=== PATIENT | female | born 1970 | race Caucasian/White ===

== ENCOUNTER 2024-02-26 13:02 | Outpatient (AMB) | payer OTHER, SELFPAY ==
--- NOTE | 2024-02-26 13:10 | A.OFFPC_ITS ---
Vital Signs 02/26/24 13:17 Height 5 ft 4 in Weight 190 lb 2 oz BMI 32.6 BP 116/78 Blood Pressure Location Lt brachial Position Sitting Respiration 12 Pulse 65 Pulse Source Pulse Oximeter Temp 98.2 F Temp Source Oral Pulse Oximetry (%) 95 Oxygen Delivery Method Room Air Intake Visit Reasons: [employer]- Thyroid follow up Intake Note: New patient visit Allergies Penicillins Allergy (Severe, Verified 02/26/24 13:11) Unknown Medication List - Last Reconciled 02/26/24 by Regla Gao PA-C levothyroxine 50 mcg PO DAILY sertraline 50 mg PO DAILY Tobacco use date assessed: 02/26/24 Dental Screening Dental Screen Date: 02/26/24 Did you have a dental visit in the last 12 months?: Yes Did you have a dental problem in the last 6 months where you did not have access to dental care?: No Was dental information given to patient?: Patient has dentist HPI [employer]- Thyroid follow up HPI Details Patient is a 53-year-old female who presents today to establish care/follow up. She was last seen by myself at [facility] on 10/07/23. Endo: She was started on levothyroxine 50 mcg well her TSH was 28. She had had antibody testing which I do not have the report of. She did have an ultrasound which was consistent with thyroiditis. Psych: Feels well-controlled on Zoloft 50 mg. No SI/HI. General: We were working on weight loss with phentermine but no real improvement. She stopped this medication but is wondering if there is something else she could try. She exercises and eats healthy everyday. She states that she wonders if it is her thyroid that is still just making her feel tired and unable to lose weight effectively. Derm: follows annually with [facility]. 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 1. Little interest or pleasure in doing things: not at all 2. Feeling down, depressed, or hopeless: not at all 3. Trouble falling or staying asleep, or sleeping too much: several days 4. Feeling tired or having little energy: several days 5. Poor appetite or overeating: not at all 6. Feeling bad about yourself - or that you are a failure or have let yourself or your family down: not at all 7. Trouble concentrating on things, such as reading the newspaper or watching television: not at all 8. Moving or speaking so slowly that other people could have noticed. Or the opposite - being so fidgety or restless that you have been moving around a lot more than usual: not at all 9. Thoughts that you would be better off or of hurting yourself in some way: not at all Total score: 2 Depression Screening Interpretation: Negative Depression Screening Done: Yes 49855 - PHQ-9 Billing: Yes Source: Developed by Drs. Bong Molina, Lavinia Crabtree, Jan Dave and colleagues, with an educational yunier from [employer]. Thrive Questionnaire I am a: Patient What is your living situation today?: I have a steady place to live Within the past 12 months, did the food you bought not last and you didn't have the money to get more?: Never true Within the past 12 months, did you worry whether your food would run out before you got money to buy more?: Never true Do you have trouble paying for medicines?: No Do you have trouble getting transportation to medical appointments?: No Do you have trouble paying your heating and electricity bill?: No Do you have trouble taking care of your child, family member or friend?: No Do you have trouble with day-to-day activities such as bathing, preparing meals, shopping, managing finances, etc.?: No Are you currently unemployed and looking for a job?: No Are you interested in more education?: No Please select the resources that you would like help with: None Currently or been in a relationship where the following occur: no concerns reported THRIVE Score: 0 AUDIT C Alcohol Use Questionnaire (AUDIT-C) 1. How often do you have a drink containing alcohol?: Never 3. How often do you have six or more drinks on one occasion?: Never Total Score: 0 MELLO-7 AMB Questionnaire MELLO-7 Feeling nervous, anxious, or on edge: 0 = Not at all Not being able to stop or control worryin = Not at all Worrying too much about different things: 0 = Not at all Trouble relaxin = Not at all Being so restless that it is hard to sit still: 0 = Not at all Becoming easily annoyed or irritable: 0 = Not at all Feeling afraid as if something awful might happen: 0 = Not at all Total MELLO-7 score (0-4 normal; 5-9 mild; 10-14 moderate; 15-21 severe): 0 Source: Developed by Drs. Bong Molina, Lavinia Crabtree, Jan Dave and colleagues, with an educational yunier from [employer]. MELLO-7 Assessment Billing MELLO-7 Assessment Tool: MELLO-7 Assessment 24613 Physical exam (Primary Care) Tobacco/Smoking Status: Tobacco use Status Tobacco use date assessed 02/26/24 02/26/24 13:15 Patient Tobacco Use Status Never used Tobacco 02/26/24 13:15 e-Cigarette/Vaping Use Never Used 02/26/24 13:15 Depression Screening Interpretation: Negative Currently or been in a relationship where the following occur: no concerns reported Const Orientation/consciousness: patient oriented x3 HENMT Ears: hearing grossly normal bilaterally Neck Thyroid: Thyroid normal Lymphatic: no lymphadenopathy noted Resp Auscultation: clear to auscultation bilaterally Cardio Rate: regular rate Rhythm: regular rhythm Heart sounds: S1 normal heart sound present and S2 normal heart sound present GI Inspection: Yes normal to inspection Palpation (GI): Soft to palpation and Other GI palpation findings present (nontender, no cva tenderness) Auscultation: normoactive bowel sounds Rectal Exam - Female: deferred Skin General skin exam: no rashes or lesions noted Neuro General: patient oriented x3, gait normal and no focal motor deficits Assessment and Plan Assessment & Plan (1) Hypothyroidism: Code(s): E03.9 - Hypothyroidism, unspecified Qualifiers: Hypothyroidism type: unspecified Qualified Code(s): E03.9 - Hypothyroi dism, unspecified Plan: We will recheck TSH today. Adjust medication accordingly. (2) Obesity, Class I, BMI 30-34.9: Code(s): E66.9 - Obesity, unspecified Plan: She will contact her insurance company to see if they will cover Wegovy or zepbound. (3) Fatigue: Code(s): R53.83 - Other fatigue Qualifiers: Fatigue type: unspecified Qualified Code(s): R53.83 - Other fatigue Plan: Labs ordered today. We will follow up pending test results. Orders: Orders Comprehensive Honor. Panel Fast Today E03.9 - Hypothyroidism, unspecified, E66.9 - Obesity, unspecified, R53.83 - Other fatigue Complete Blood Count Auto Diff Today E03.9 - Hypothyroidism, unspecified, E66.9 - Obesity, unspecified, R53.83 - Other fatigue Vitamin B12 and Folate Today E03.9 - Hypothyroidism, unspecified, E66.9 - Obesity, unspecified, R53.83 - Other fatigue Thyroid Peroxidase Antibodies Today E03.9 - Hypothyroidism, unspecified, E66.9 - Obesity, unspecified, R53.83 - Other fatigue XR DEXA axial skeleton Today Z78.0 - Asymptomatic menopausal state Lipid Panel Today E03.9 - Hypothyroidism, unspecified, E66.9 - Obesity, unspecified, R53.83 - Other fatigue TSH reflex Free T4 Today E03.9 - Hypothyroidism, unspecified, E66.9 - Obesity, unspecified, R53.83 - Other fatigue Thyroglobulin Antibodies Today E03.9 - Hypothyroidism, unspecified, E66.9 - Obesity, unspecified, R53.83 - Other fatigue Coding Level of Care Code Est Pt Level 4 (33156) Complex EM visit Add On G2211 Diagnoses Hypothyroidism, unspecified type E03.9 Hypothyroidism type: unspecified Obesity, Class I, BMI 30-34.9 E66.9 Fatigue, unspecified type R53.83 Fatigue type: unspecified Additional Codes MELLO-7 Assessment Billing - MELLO-7 Assessment Tool: MELLO-7 Assessment 78946 ([id number])
[2024-02-26 13:17] VITALS: BP 116/78; PULSE 65; RESP 12; TEMP 36.8; O2SAT 95; BMI 32.6
== END 2024-02-26 13:54 | disposition home or self-care (01) ==
PROVIDERS: PCP Physician Assistant; Visit Provider Physician Assistant
DX: E03.9 Hypothyroidism, unspecified (principal); E66.9 Obesity, unspecified; R53.83 Other fatigue; Z68.32 Body mass index [BMI] 32.0-32.9, adult
CPT/HCPCS: 99214; G2211

== ENCOUNTER 2024-02-27 07:42 | Outpatient (REF) | payer OTHER, SELFPAY ==
[2024-02-27 11:40] LABS: Basophils Absolute Auto 0.1 X10*3/uL (0.0-0.2); Basophils Percent Auto 0.9 % (0-2); Eosinophils Absolute Auto 0.2 X10*3/uL (0.0-0.4); Eosinophils Percent Auto 2.6 % (0-4); Hemoglobin 13.4 g/dl (12.0-16.0); Imm Gran Abs Auto 0.01 X10*3/uL (0.00-0.03); Imm Gran Pct Auto 0.2 % (0.0-0.4); Lymphocytes Absolute Auto 1.4 X10*3/uL (1.2-4.9); Lymphocytes Percent Auto 24.4 % (20-40); MANUAL DIFF FLAG NO; Mean Corpuscular HGB Conc 33.5 g/dl (31.0-35.0); Mean Corpuscular Hemoglobin 30.9 pg (27.0-33.0); Mean Corpuscular Volume 92.2 fL (80.0-98.0); Mean Platelet Volume 11.6 fL (9.4-12.3); Monocytes Absolute Auto 0.4 X10*3/uL (0.1-1.2); Monocytes Percent Auto 6.7 % (2-11); Neutrophils Absolute Auto 3.8 x10*3/uL (2.0-8.3); Neutrophils Percent Auto 65.2 % (45-73); Platelet Count 238 X10*3/uL (160-400); Red Blood Count 4.34 X10*6/uL (4.20-5.50); Red Cell Distribution Width 12.8 % (11.0-16.0); White Blood Count 5.8 X10*3/uL (4.8-10.8)
[2024-02-27 12:34] LABS: Vitamin B12 389 pg/mL (200-900)
[2024-02-27 12:41] LABS: Alanine Aminotransferase 39 U/L (0-31); Albumin Level 4.3 g/dL (3.5-5.0); Alkaline Phosphatase 84 U/L (39-117); Anion Gap 12 (12-20); Aspartate Amino Transferase 28 U/L (5-31); Bilirubin Total 0.5 mg/dL (0.0-1.0); Blood Urea Nitrogen 15 mg/dL (9-16); Calcium 9.4 mg/dL (8.4-10.2); Carbon Dioxide 24 mmol/L (22-29); Chloride 112 mmol/L (96-108); Cholesterol 208 mg/dL (<200); Estimated Glomerular Filt Rate > 60; Glucose Fasting 98 mg/dL (60-99); HDL Cholesterol 58 mg/dL (>40); LDL Cholesterol Calculated 123 mg/dL (<100); Potassium 4.2 mmol/L (3.3-5.1); Sodium 144 mmol/L (135-145); Total Protein 6.8 g/dL (6.5-8.0); Triglycerides 137 mg/dL (<150)
[2024-02-27 12:43] LABS: TSH reflex Free T4 2.95 uIU/mL (0.32-4.0)
[2024-02-28 11:13] LABS: Thyroglobulin Antibodies 208 IU/mL (< or = 1); Thyroid Peroxidase Antibodies 706 IU/mL (<9)
== END 2024-02-27 07:43 | disposition home or self-care (01) ==
LOC: HO.WFDLDS 07:42
PROVIDERS: Visit Provider Physician Assistant
DX: E03.9 Hypothyroidism, unspecified (principal); E66.9 Obesity, unspecified; R53.83 Other fatigue
CPT/HCPCS: 36415; 80053; 80061; 82607; 82746; 84443; 85025; 86376; 86800

== ENCOUNTER 2024-04-08 09:24 | Outpatient (REF) | payer OTHER, SELFPAY ==
--- NOTE | ~2024-04-08 | MM_ITS ---
EXAMINATION: BONE DENSITOMETRY CLINICAL INDICATION: Asymptomatic menopausal state. COMPARISON: This is the patient's baseline examination. TECHNIQUE: Using a [employer] DXA System (software version: 13.1) manufactured by [facility] [employer], dual-energy x-ray absorptiometry was performed of the lumbar spine and left hip. The images are of good technical quality. Summary results are attached. FINDINGS: LEFT FEMUR, NECK: BMD 0.961 g/cm2, Z-score 0.0, T-score -0.6, normal. LEFT FEMUR, TOTAL: BMD 0.949 g/cm2, Z-score -0.3, T-score -0.5, normal. AP SPINE L1-L4: BMD 1.306 g/cm2, Z-score 1.1, T-score 1.1, normal. IDENTIFIED RISK FACTORS: Menopause. HISTORY OF FRACTURE: None listed. MEDICATIONS: None listed. MM/XR DEXA axial skeleton IMPRESSION: 1. DIAGNOSIS: Normal bone density based on the lowest T-score value of -0.6 in the femoral neck applying World Health Organization criteria. 2. 10-YEAR FRACTURE RISK PREDICTION, FRAX: According to the guidelines, FRAX calculation should only be performed on patients in the osteopenia bone density category. Therefore, FRAX was not performed on this patient. 3. Treatment Recommendations: NOF guidelines recommend consideration for treatment in postmenopausal women and men age 50 and older presenting with the following: -A hip or vertebral (clinical or morphometric) fracture. -T-score less than or equal to -2.5 at the femoral neck or spine after appropriate evaluation to exclude secondary causes. -Low bone mass at the hip or spine and a 10-year fracture probability by FRAX of greater than or equal to 3% for hip fracture or greater than or equal to 20% for major osteoporotic fracture based on the [place] adapted WHO algorithm. 4. Other Recommendations: All treatment decisions require clinical judgment and consideration of individual patient factors, including patient preferences, comorbidities, previous drug use, risk factors not captured in the FRAX model (e.g. frailty, falls, vitamin D deficiency, increased bone turnover, interval significant decline in bone density) and possible under or overestimation of fracture risk by FRAX. FUTURE SCAN RECOMMENDATION: People with diagnosed cases of osteoporosis or at high risk for fracture should have regular bone mineral density tests. For patients eligible for Medicare, routine testing is allowed once every 2 years. The testing frequency can be increased to one year for patients who have rapidly progressing disease, those who are receiving or discontinuing medical therapy to restore bone mass, or have additional risk factors.
== END 2024-04-08 09:25 | disposition home or self-care (01) ==
LOC: HO.MAMMO 09:24
PROVIDERS: Visit Provider Physician Assistant
DX: Z13.820 Encounter for screening for osteoporosis (principal); Z78.0 Asymptomatic menopausal state
CPT/HCPCS: 77080

== ENCOUNTER 2024-10-21 08:01 | Outpatient (AMB) | payer OTHER, SELFPAY ==
--- NOTE | 2024-10-21 08:03 | A.OFFPC_ITS ---
Vital Signs 10/21/24 08:08 Height 5 ft 4 in Weight 186 lb 6 oz BMI 32.0 BP 100/60 Blood Pressure Location Rt brachial Position Sitting Respiration 14 Pulse 66 Pulse Source Pulse Oximeter Pulse Oximetry (%) 98 Oxygen Delivery Method Room Air Intake Visit Reasons: annual Intake Note: Physical Cow Rider Required: No Allergies Penicillins Allergy (Severe, Verified 10/21/24 08:07) Unknown Medication List - Last Reconciled 10/21/24 by Regla Gao PA-C cetirizine (Zyrtec) 10 mg PO DAILY PRN levothyroxine 50 mcg PO DAILY sertraline 50 mg PO DAILY Tobacco use date assessed: 10/21/24 Dental Screening Dental Screen Date: 02/26/24 HPI annual HPI Details Patient is a 54-year-old female who presents today for a physical. Endo: She is on levothyroxine 50 mcg. her TSH was 2. Psych: Feels well-controlled on Zoloft 50 mg. No SI/HI. General: Doing very well with wegovy. no SE at the 0.25 mg weekly Derm: follows annually with [facility] however, recently has had to reschedule and her appointment is 2 years out. Colonoscopy: UTD, 2023 Pap: follows annually Mammogram: 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 1. Little interest or pleasure in doing things: not at all 2. Feeling down, depressed, or hopeless: not at all 3. Trouble falling or staying asleep, or sleeping too much: not at all 4. Feeling tired or having little energy: not at all 5. Poor appetite or overeating: not at all 6. Feeling bad about yourself - or that you are a failure or have let yourself or your family down: not at all 7. Trouble concentrating on things, such as reading the newspaper or watching television: not at all 8. Moving or speaking so slowly that other people could have noticed. Or the opposite - being so fidgety or restless that you have been moving around a lot more than usual: not at all 9. Thoughts that you would be better off or of hurting yourself in some way: not at all Total score: 0 Depression Screening Interpretation: Negative Depression Screening Done: Yes 10140 - PHQ-9 Billing: Yes Source: Developed by Drs. Bong Molina, Lavinai Crabtree, Jan Dave and colleagues, with an educational yunier from [employer]. Thrive Questionnaire Date Thrive assessed: 10/21/24 I am a: Patient What is your living situation today?: I have a steady place to live Within the past 12 months, did the food you bought not last and you didn't have the money to get more?: Never true Within the past 12 months, did you worry whether your food would run out before you got money to buy more?: Never true Do you have trouble paying for medicines?: No Do you have trouble getting transportation to medical appointments?: No Do you have trouble paying your heating and electricity bill?: No Do you have trouble taking care of your child, family member or friend?: No Do you have trouble with day-to-day activities such as bathing, preparing meals, shopping, managing finances, etc.?: No Are you currently unemployed and looking for a job?: No Are you interested in more education?: No Please select the resources that you would like help with: None Currently or been in a relationship where the following occur: No concerns reported THRIVE Score: 0 AUDIT C Alcohol Use Questionnaire (AUDIT-C) 1. How often do you have a drink containing alcohol?: Never Total Score: 0 MELLO-7 AMB Questionnaire MELLO-7 Date MELLO - 7 assessed: 10/21/24 Feeling nervous, anxious, or on edge: 0 = Not at all Not being able to stop or control worryin = Not at all Worrying too much about different things: 0 = Not at all Trouble relaxin = Not at all Being so restless that it is hard to sit still: 0 = Not at all Becoming easily annoyed or irritable: 0 = Not at all Feeling afraid as if something awful might happen: 0 = Not at all Total MELLO-7 score (0-4 normal; 5-9 mild; 10-14 moderate; 15-21 severe): 0 Source: Developed by Drs. Bong Molina, Lavinia Crabtree, Jan Dave and colleagues, with an educational yunier from [employer]. MELLO-7 Assessment Billing MELLO-7 Assessment Tool: MELOL-7 Assessment 12345 Physical exam (Primary Care) Tobacco/Smoking Status: Tobacco use Status Tobacco use date assessed 02/26/24 10/21/24 08:06 Patient Tobacco Use Status Never used Tobacco 10/21/24 08:06 e-Cigarette/Vaping Use Never Used 10/21/24 08:06 PHQ-9: PHQ-9 Score PHQ-9: Total score 0 10/21/24 08:06 Depression Screening Interpretation: Negative Currently or been in a relationship where the following occur: No concerns reported Const Orientation/consciousness: patient oriented x3 HENMT Ears: hearing grossly normal bilaterally and TM's normal bilaterally General nose exam: No nasal polyps present Face and sinus: Yes sinuses nontender Mouth: Normal oral and palatal mucosa present Eyes Pupils: Equal, round and reactive pupils present EOM: EOMs intact bilaterally Neck Neck: Yes full ROM and Yes no lymphadenopathy Thyroid: Thyroid normal Chest Chest palpation & inspection: normal inspection of the chest Resp Auscultation: clear to auscultation bilaterally Cardio Rate: regular rate Rhythm: regular rhythm Heart sounds: S1 normal heart sound present and S2 normal heart sound present Peripheral pulses: Peripheral pulses 2+ throughout GI Other: Soft, nontender Auscultation: normal bowel sounds Rectal Exam - Female: deferred General: Yes no CVA tenderness Back/Spine/Pelvis Other: Nontender Back: no CVA tenderness Skin General skin exam: no rashes or lesions noted Neuro General: patient oriented x3, gait normal, CN's II-XI intact bilaterally and deep tendon reflexes 2+ bilaterally Cranial nerves: Yes Equal, round and reactive pupils present Motor exam (neuro): 5/5 motor strength present throughout Sensory Exam: double simultaneous stimulation for sensation normal Coordination: [id number] test normal and Romberg test negative Extrem General: Yes normal to inspection and Yes full ROM Psych Affect: normal affect Attitude: cooperative Thought process: Normal thought process present Thought content: Normal thought content present Insight: Good insight present (Psych) Judgement: Good judgement present (Psych) Results Reviewed Results Reviewed: Laboratory Tests 02/27/24 07:47 WBC 5.8 RBC 4.34 Hgb 13.4 Hct 40.0 Plt Count 238 Sodium 144 Potassium 4.2 Chloride 112 H Carbon Dioxide 24 Anion Gap 12 BUN 15 Creatinine 0.68 Estimated GFR > 60 Fasting Glucose 98 Calcium 9.4 Total Bilirubin 0.5 AST 28 ALT 39 H Alkaline Phosphatase 84 Total Protein 6.8 Albumin 4.3 Triglycerides 137 Cholesterol 208 H LDL Cholesterol, Calc 123 H HDL Cholesterol 58 Vitamin B12 389 Folate 12.0 TSH 2.95 Thyroglobulin Antibody 208 H Thyroid Peroxidase Ab 706 H MM/XR DEXA axial skeleton IMPRESSION: 1. DIAGNOSIS: Normal bone density based on the lowest T-score value of -0.6 in the femoral neck applying World Health Organization criteria. Coding Level of Care Code Est Pt Prev Care 40-64y(52117) Diagnoses Encounter for routine history and physical examination Z00.00 Hypothyroidism, unspecified type E03.9 Hypothyroidism type: unspecified Obesity, Class I, BMI 30-34.9 E66.9 Additional Codes PHQ-9 - 44010 - PHQ-9 Billing: Yes ([id number]) MELLO-7 Assessment Billing - MELLO-7 Assessment Tool: MELLO-7 Assessment 85631 ([id number]) Assessment & Plan Assessment & Plan (1) Encounter for routine history and physical examination: Code(s): Z00.00 - Encounter for general adult medical examination without abnormal findings Plan: Health maintenance reviewed. Labs reviewed and ordered. (2) Hypothyroidism: Code(s): E03.9 - Hypothyroidism, unspecified Category: Medical Qualifiers: Hypothyroidism type: unspecified Qualified Code(s): E03.9 - Hypothyroidism, unspecified Plan: Well-controlled. Continue current regimen. (3) Obesity, Class I, BMI 30-34.9: Code(s): E66.9 - Obesity, unspecified Category: Medical Plan: Increase Wegovy to 0.5 mg. We will continue to monitor. Discussed diet and lifestyle modifications. Orders: Orders Liver Panel Today E03.9 - Hypothyroidism, unspecified, E66.9 - Obesity, unspecified, Z00.00 - Encounter for general adult medical examination without abnormal findings Lipid Panel Today E03.9 - Hypothyroidism, unspecified, E66.9 - Obesity, unspecified, Z00.00 - Encounter for general adult medical examination without abnormal findings Zinc Today E03.9 - Hypothyroidism, unspecified, E55.9 - Vitamin D deficiency, unspecified, E66.9 - Obesity, unspecified TSH reflex Free T4 Today E03.9 - Hypothyroidism, unspecified, E66.9 - Obesity, unspecified, Z00.00 - Encounter for general adult medical examination without abnormal findings Basic Metabolic Panel Today E03.9 - Hypothyroidism, unspecified, E66.9 - Obesity, unspecified, Z00.00 - Encounter for general adult medical examination without abnormal findings Vitamin B12 and Folate Today E03.9 - Hypothyroidism, unspecified, E55.9 - Vitamin D deficiency, unspecified, E66.9 - Obesity, unspecified Magnesium Today E03.9 - Hypothyroidism, unspecified, E55.9 - Vitamin D deficiency, unspecified, E66.9 - Obesity, unspecified Vitamin B1 Today E03.9 - Hypothyroidism, unspecified, E55.9 - Vitamin D deficiency, unspecified, E66.9 - Obesity, unspecified Vitamin A Today E03.9 - Hypothyroidism, unspecified, E55.9 - Vitamin D deficiency, unspecified, E66.9 - Obesity, unspecified Vitamin D 25-OH Total Today E03.9 - Hypothyroidism, unspecified, E55.9 - Vitamin D deficiency, unspecified, E66.9 - Obesity, unspecified Referrals Dermatology Referral Z12.83 - Encounter for screening for malignant neoplasm of skin Medications: New semaglutide (weight loss) (Wegovy) administer weeks 5 through 8 of therapy 0.5 mg (0.5 mL) subcut QWEEK 2 mL 2RF
[2024-10-21 08:08] VITALS: BP 100/60; PULSE 66; RESP 14; O2SAT 98; BMI 32.0
--- OUTSIDE RECORDS SUMMARY | 2024-10-21 08:08 | XMS_ITS | Data Portability ---
Author Organization AMANDEEP Aguilera s [address] Address [address] [place] [address] Assessment No assessment recorded. Plan of Treatment Reminders Order Date Submit Date Provider Last Modified By Organization Details Last Modified Time Details Appointments None recorde d. Lab rapid flu (A+B) 024 08/15/20 [email or web address] [address] [place] [address], [phone], 12:55:21 Referral None recorde d. Procedures None recorde d. Surgeries None recorde d. Imaging None recorde d. Medication Orders None recorde d. Patient TargetsNo targets recorded. Patient Instructions Encounter Date Encounter Id Patient Instructions Last Modified By Organization Details Last Modified Time 08/15/2024 [id number] influenza (flu): care instructions [email or web address] Not available 08/15/2024 13:01:34 Reason for Referral None Reported. Results Created Date Observation Date Name Description Value Unit Range Abnormal Flag Note LastModifiedBy Organization Detail LastModifiedTime 08/15/2008/15/2024 rapid flu (A+B) Unknown Analyte positi ve Not Available [address] [place], [address], 08/15/2024 12:33:57 08/15/2008/15/2024 rapid flu (A+B) Unknown Analyte negati ve Not Available [facility] [address] [place] [address], [address], 08/15/2024 12:33:57 12/1408/15/2024 rapid flu (A+B) Unknown Analyte yes Not Available [address] [place], [address], 08/15/2024 12:33:57 Result Notes None recorded. Problems Name Problem SNOMED Code Status Onset Date Resolution Date Notes Provider Name and Address Organization Details Recorded Time Thyroiditis 25771584 Active AMANDEEP Perez [facility] 12:32:12 Notes:HOT FLASHES Problem Notes None recorded. Medical Equipment None Reported. Medications Name Sig Start Date Stop Date Status Note LastModified by Organization Details LastModified Time levothyroxi ne 50 mcg tablet TAKE 1 TABLET BY MOUTH ONCE DAILY active Not Available Not Available No t Available sertraline 50 mg tablet TAKE 1 TABLET BY MOUTH ONCE DAILY active Not Available Not Available No t Available peg 3350-electr olytes 236 gram-22.74 gram-6.74 gram-5.86 gram solution SPLIT PREP METHOD. TAKE ONE-HALF GALLON EVENING PRIOR TO COLONOSCO PY AND ONE-HALF GALLON 6 HOURS PRIOR TO START OF COLONOSCO PY TEST DATE: 12/10/2308/15 completed Not Available Not Available Not Available Wegovy 0.25 mg/0.5 mL subcutaneou s pen injector INJECT 1 SYRINGE SUBCUTANE OUSLY ONCE A WEEK.ADMI NISTER WEEK 1 THROUGH 4 OF THERAPHY 08/15 completed Not Available Not Available Not Available Vitals Date Recorded Body height Body mass index (BMI) Body weight Body temperature Oxygen saturation Oxygen saturation in Arterial blood by Pulse oximetry Heart rate Systolic blood pressure Diastolic blood pressure Provider Name and Address Organization Details Last Updated DateTime 162.56 cm 29.2 kg/m2 10396.7 g 98.7 [degF] 95 % 95 % 66 /min 111 mm[Hg] 72 mm[Hg] Joi BERNSTEIN - [facility] 12:28:02 Social History Question Answer Notes LastModified by Organizat ion Details LastModified Time Tobacco Smoking Status Never Smoker AMANDEEP Perez [facility] 08/15/2024 12:33:10 What Is Your Level Of Alcohol Consumption? None Information not available 08/15/2024 Are You Currently Employed? Yes Information not available 08/15/2024 Have You Had A Flu Shot This Season? No Information not available 08/15/2024 If No, Would You Like A Flu Shot Today? No Information not available 08/15/2024 What Is Your Relationship Status? Information not available 08/15/2024 Are You Passively Exposed To Smoke? No Information no t available 08/15/2024 Do You Use Any Illicit Or Recreational Drugs? No Information not available 08/15/2024 Have You Recently Traveled Abroad? No Information not available 08/15/2024 Do You Or Have You Ever Used Any Other Forms Of Tobacco Or Nicotine? No Information not available 08/15/2024 Sex: Unknown Functional Status None recorded. Mental Status None recorded. Family History Nothing Reported. Medical History No medical history recorded. Gynecological History Statement/Question Response Is there any chance of ? No LMP N/A Obstetrics History GPAL:G 0 P 0 0 0 0 Past Encounters Encounter ID Performer Location Encounter Start Date Encounter Closed Date Diagnosis/Indication Diagnosis SNOMED-CT Code Diagnosis ICD10 Code Diagnosis Note [id number] [address] [address] 06/17/2020 18:43:24 06/17/2020 19:42:15 [id number] Cy Bates DO [address] [address] 08/15/2024 11:27:14 08/15/2024 13:03:26 Influenza caused by Influenza A virus 935060134 J09.X2 past window for Tamiflu Recommend plenty of fluidsTyle nol, Motrin for pain/fever Humidifier Nasal saline sprayNo need for antibiotic may last up to 2 weeksCall or RTC if worsening cough, SOB, high fever, rash, n/v/d and unable to hydrate Discussed concerning red flags with patient and reasons to follow up in the Emergency Department urgently. Health Concerns Section Related Observation LastModified by Organization Detai ls LastModified Time None Recorded Concern Status LastModified by Organization Details LastModified Time None Recorded Advance Directives Directive None Recorded Payers Encounter Date Sequence Insurance Name Policy Number Policy Sexton Covered Member ID Sexton Member ID Guarantor Name 06/17/2020 1 [facility]: [facility] ([place]) [id number] Ch[address] Bryan [id number] [address] 08/15/2024 1 [employer] [place] - [facility] ([place] [id number] Chino Bryan [id number] [address] Notes Date Note Type Note Provider Name and Address Organization Details Recorded Time 08/15/2024 text/html CoughReported bypatient.Notes:53 yo female c/o 1 week cough w/phlegm, STEVENSON, body ache, congestion home covid test negative no h/o asthmanon smoker + subjective feverNo chillsNo nauseaNo vomitingNo wheezeNo difficulty breathing or respiratory distressNo CPNo sinus painNo ear painNo sore throatNo Abdominal painNo diarrheaNo fatigueNo rashNo dizzinessNo recent travelNo known sick contacts Cy Bates, DO [address] [place], [address], [place] - [facility] 08/15/2024 13:02:15 OBGyn Episode No OBEpisode recorded.
== END 2024-10-21 08:38 | disposition home or self-care (01) ==
PROVIDERS: PCP Physician Assistant; Visit Provider Physician Assistant
DX: Z00.00 Encounter for general adult medical examination without abnormal findings (principal); E03.9 Hypothyroidism, unspecified; E66.9 Obesity, unspecified; Z68.32 Body mass index [BMI] 32.0-32.9, adult

== ENCOUNTER → 2024-10-21 08:01 | Outpatient (BNVA) | payer OTHER, SELFPAY | PROVIDERS: PCP Physician Assistant; Visit Provider Physician Assistant | DX: Z00.00 Encounter for general adult medical examination without abnormal findings (principal); E03.9 Hypothyroidism, unspecified; E66.9 Obesity, unspecified; Z68.32 Body mass index [BMI] 32.0-32.9, adult; Z79.899 Other long term (current) drug therapy | CPT/HCPCS: 96127 ==

== ENCOUNTER 2025-01-11 08:47 | Outpatient (REF) | payer OTHER, SELFPAY ==
--- OUTSIDE RECORDS SUMMARY | 2025-01-11 08:54 | XMS_ITS | Data Portability ---
Author Organization AMANDEEP Aguilera s [address] Address [address] [place] [address] Assessment No assessment recorded. Plan of Treatment Reminders Order Date Submit Date Provider Last Modified By Organization Details Last Modified Time Details Appointments None recorde d. Lab rapid flu (A+B) 024 08/15/20 [email or web address] [address] [place] [address], [phone], 12:55:21 Referral None recorde d. Procedures None recorde d. Surgeries None recorde d. Imaging None recorde d. Medication Orders None recorde d. Patient TargetsNo targets recorded. Patient Instructions Encounter Date Encounter Id Patient Instructions Last Modified By Organization Details Last Modified Time 08/15/2024 [id number] influenza (flu): care instructions [email or web address] Not available 08/15/2024 13:01:34 Reason for Referral None Reported. Results Created Date Observation Date Name Description Value Unit Range Abnormal Flag Note LastModifiedBy Organization Detail LastModifiedTime 08/15/2008/15/2024 rapid flu (A+B) Unknown Analyte positi ve Not Available [address] [place], [address], 08/15/2024 12:33:57 08/15/2008/15/2024 rapid flu (A+B) Unknown Analyte negati ve Not Available ie [facility] [address] [place] [address], [address], 08/15/2024 12:33:57 12/1408/15/2024 rapid flu (A+B) Unknown Analyte yes Not Available [address] [place], [address], 08/15/2024 12:33:57 Result Notes None recorded. Problems Name Problem SNOMED Code Status Onset Date Resolution Date Notes Provider Name and Address Organization Details Recorded Time Thyroiditis 84589887 Active AMANDEEP Perez [facility] 12:32:12 Notes:HOT [...] Last Updated DateTime 162.56 cm 29.2 kg/m2 51036.7 g 98.7 [degF] 95 % 95 % 66 /min 111 mm[Hg] 72 mm[Hg] Joi BERNSTEIN - [facility] 12:28:02 Social History Question Answer Notes LastModified by Organizat ion Details LastModified Time Tobacco Smoking Status Never Smoker AMANDEEP Perez [facility] 08/15/2024 12:33:10 Have You Had A Flu Shot This Season? No Information not available 08/15/2024 If No, Would You Like A Flu Shot Today? No Information not available 08/15/2024 What Is Your Relationship Status? Information not available 08/15/2024 Are You Passively Exposed To Smoke? No Information no t available 08/15/2024 Have You Recently Traveled Abroad? No Information not available 08/15/2024 Sex: Unknown Functional Status Question Answer Note LastModified by Organizat ion Details LastModified Time Do you use any illicit or recreational drugs? No Information not available 08/15/2024 Do you or have you ever used any other forms of tobacco or nicotine? No Information not available 08/15/2024 What is your level of alcohol consumption? None Information not available 08/15/2024 Are you currently employed? Yes Information not available 08/15/2024 Mental Status None recorded. Family History Nothing Reported. Medical History No medical history recorded. Gynecological History Statement/Question Response Is there any chance of ? No LMP N/A Obstetrics History GPAL:G 0 P 0 0 0 0 Past Encounters Encounter ID Performer Location Encounter Start Date Encounter Closed Date Diagnosis/Indication Diagnosis SNOMED-CT Code Diagnosis ICD10 Code Diagnosis Note [id number] [facility] _[address] [address] 06/17/2020 18:43:24 06/17/2020 19:42:15 [id number] Cy Bates DO _[address] [address] 08/15/2024 11:27:14 08/15/2024 13:03:26 Influenza caused by Influenza A virus 540481612 J09.X2 past window for Tamiflu Recommend plenty [...] Concerns Section Related Observation LastModified by Organization Chandler palma LastModified Time None Recorded Concern Status LastModified by Organization Details LastModified Time None Recorded Advance Directives Directive None Recorded Payers Insurance Date Sequence Insurance Name Policy Number Policy Sexton Covered Member ID Sexton Member ID Guarantor Name 08/15/2024 1 [employer] [place] [id number] Chino Bryan [id number] [address] 08/15/2024 1 [place] [id number] Chino Bryan [id number] [address] 08/15/2024 [employer] [place] [id number] Chino Bryan [id number] Notes Date Note Type Note Provider [...] Bates, DO [address] [place], [address], [place] - [facility] 08/15/2024 13:02:15 OBGyn Episode No OBEpisode recorded.
--- OUTSIDE RECORDS SUMMARY | 2025-01-11 08:54 | XMS_ITS ---
Author Name [facility] Organization Unknown Encounters Encounter Type Encounter Reason Primary Diagnosis Location Date Ambulatory [facility]. ([place] 08/15/2024
[2025-01-11 12:28] LABS: Folate 11.6 ng/mL (> or = 4.0); Vitamin B12 411 pg/mL (200-900)
[2025-01-11 13:20] LABS: Vitamin D 25-OH Total 54.2 ng/mL (>30)
[2025-01-11 13:31] LABS: Alanine Aminotransferase 40 U/L (0-31); Albumin Level 4.5 g/dL (3.5-5.0); Anion Gap 12 (12-20); Aspartate Amino Transferase 34 U/L (5-31); Bilirubin Direct 0.2 mg/dL (0.0-0.5); Bilirubin Total 0.8 mg/dL (0.0-1.0); Blood Urea Nitrogen 16 mg/dL (9-16); Calcium 9.7 mg/dL (8.4-10.2); Carbon Dioxide 26 mmol/L (22-29); Chloride 108 mmol/L (96-108); Cholesterol 203 mg/dL (<200); Estimated Glomerular Filt Rate > 60; Glucose Random 88 mg/dL (60-115); HDL Cholesterol 59 mg/dL (>40); LDL Cholesterol Calculated 115 mg/dL (<100); Magnesium 2.2 mg/dL (1.6-2.6); Potassium 4.2 mmol/L (3.3-5.1); Sodium 142 mmol/L (135-145); Total Protein 6.8 g/dL (6.5-8.0); Triglycerides 145 mg/dL (<150)
[2025-01-11 14:26] LABS: Alkaline Phosphatase 80 U/L (39-117)
[2025-01-14 22:04] LABS: Vitamin A 66 mcg/dL (38-98)
[2025-01-17 18:28] LABS: Vitamin B1 9 nmol/L (8-30)
== END 2025-01-11 08:48 | disposition home or self-care (01) ==
LOC: HO.WFDLDS 08:47
PROVIDERS: Visit Provider Physician Assistant
DX: Z00.00 Encounter for general adult medical examination without abnormal findings (principal); E55.9 Vitamin D deficiency, unspecified; E03.9 Hypothyroidism, unspecified; E66.9 Obesity, unspecified
CPT/HCPCS: 36415; 80048; 80061; 80076; 82306; 82607; 82746; 83735; 84425; 84443; 84590

== ENCOUNTER 2025-02-03 13:36 | Outpatient (REF) | payer OTHER, SELFPAY ==
--- OUTSIDE RECORDS SUMMARY | 2025-02-03 13:49 | XMS_ITS | Data Portability ---
Author Organization AMANDEEP Aguilera s [address] Address [address] [place] [address] Assessment No assessment recorded. Plan of Treatment Reminders Order Date Submit Date Provider Last Modified By Organization Details Last Modified Time Details Appointments None recorde d. Lab rapid flu (A+B) 024 08/15/20 [email or web address] [address] [place] [address], [phone], 12:55:21 Referral None recorde d. Procedures None recorde d. Surgeries None recorde d. Imaging None recorde d. Medication Orders None recorde d. Patient TargetsNo targets recorded. Patient Instructions Encounter Date Encounter Id Patient Instructions Last Modified By Organization Details Last Modified Time 08/15/2024 [id number] influenza (flu): care instructions [email or web address] Not available 08/15/2024 13:01:34 Reason for Referral None Reported. Results Created Date Observation Date Name Description Value Unit Range Abnormal Flag Note LastModifiedBy Organization Detail LastModifiedTime 08/15/2008/15/2024 rapid flu (A+B) Unknown Analyte positi ve Not Available [address] [place], [address], 08/15/2024 12:33:57 08/15/20 24 08/15/2024 rapid flu (A+B) Unknown Analyte negati ve Not Available ie [address] [address] [place] [address], [address], 08/15/2024 12:33:57 12/1408/15/2024 rapid flu (A+B) Unknown Analyte yes Not Available [address] [place], [address], 08/15/2024 12:33:57 Result Notes None recorded. Problems Name Problem SNOMED Code Status Onset Date Resolution Date Notes Provider Name and Address Organization Details Recorded Time Thyroiditis 84773772 Active AMANDEEP Perez [facility] 12:32:12 Notes:HOT [...] Last Updated DateTime 162.56 cm 29.2 kg/m2 24384.7 g 98.7 [degF] 95 % 95 % [...] SNOMED-CT Code Diagnosis ICD10 Code Diagnosis Note [id number] [facility] _[address] [address] 06/17/2020 18:43:24 06/17/2020 19:42:15 [id number] Cy Bates DO _[address] [address] 08/15/2024 11:27:14 08/15/2024 13:03:26 Influenza caused by Influenza A virus 475118963 J09.X2 past window for Tamiflu Recommend plenty [...] Guarantor Name 08/15/2024 1 [employer] [facility] ([facility]) [id number] Chino Bryan [id number] [address] 08/15/2024 1 [facility] ([place]) [id number] Chino Bryan [id number] [address] 08/15/2024 [employer] [facility] ([facility]) [id number] Chino Bryan [id number] [address] Notes Date Note Type [...] Bates, DO [address] [place], [address], [place] - [facility] 08/15/2024 13:02:15 OBGyn Episode No OBEpisode recorded.
[2025-02-03 18:38] LABS: Alanine Aminotransferase 44 U/L (0-31); Albumin Level 4.5 g/dL (3.5-5.0); Alkaline Phosphatase 82 U/L (39-117); Aspartate Amino Transferase 31 U/L (5-31); Bilirubin Direct 0.1 mg/dL (0.0-0.5); Bilirubin Total 0.4 mg/dL (0.0-1.0); Gamma Glutamyl Transpeptidase 32 U/L (7-33); Iron 70 mcg/dL (30-160); Percent Iron Saturation 24 % (15-50); Total Iron Binding Capacity 295 mcg/dL (228-428); Total Protein 6.7 g/dL (6.5-8.0); Unsaturated Iron Binding 225 ug/dL
[2025-02-03 18:55] LABS: Ferritin 148 ng/mL (10-250)
[2025-02-04 05:08] LABS: HBsAGNum1 0.24 S/CO (0.00-0.99); Hepatitis B Surface Antigen Negative (Negative); ~HepC Num1 0.08 S/CO (0.00-0.79); ~Hepatitis C Antibody Nonreactive (Nonreactive)
== END 2025-02-03 13:37 | disposition home or self-care (01) ==
LOC: HO.WFDLDS 13:36
PROVIDERS: Visit Provider Physician Assistant
DX: R94.5 Abnormal results of liver function studies (principal); E66.9 Obesity, unspecified
CPT/HCPCS: 36415; 80076; 82728; 82977; 83540; 86803; 87340

== ENCOUNTER 2025-03-30 07:52 | Outpatient (REF) | payer OTHER, SELFPAY ==
--- NOTE | ~2025-03-30 | US_ITS ---
EXAMINATION: US ABDOMEN COMPLETE WITH LIVER ELASTOGRAPHY HISTORY: R94.5 - Abnormal results of liver function studies TECHNIQUE: Real-time grayscale ultrasound imaging of the abdomen was performed and images were reviewed. COMPARISON: There are no prior studies available for comparison. FINDINGS: Liver: The right lobe of the liver measures 14.8 cm in size. The left lobe of the liver measures 11.3 cm in size. The liver demonstrates increased echotexture, consistent with steatosis. No focal mass or intrahepatic biliary ductal dilatation is identified. There is normal hepatopedal flow in the portal vein. Ultrasound elastography of the liver was performed with 10 separate measurements of the liver parenchyma with the patient in the supine position. Measurements were obtained approximately 2 cm below Kourtney's capsule and perpendicular to the capsule. The median shear wave velocity is 1.09 m/s. The interquartile range/median (IQR/median) is 0.12. Gallbladder and biliary tree: The gallbladder is unremarkable, without evidence of calculi, wall thickening, or pericholecystic fluid. There is no sonographic Amaral sign. The common bile duct is normal in caliber measuring 4 mm. Kidneys: The right kidney measures 9.4 cm in length. The left kidney measures 10.4 cm in length. The kidneys are unremarkable, without evidence of masses, hydronephrosis, or calculi. Pancreas: The pancreatic head, neck, and body are unremarkable. The pancreatic tail is obscured by bowel gas. Spleen: The spleen is normal in size and contour, measuring 10.3 cm in length. Abdominal aorta and inferior vena cava: The visualized portions of the abdominal aorta and inferior vena cava are normal in caliber. There is no free fluid in the abdomen. US/US abdomen comp w elastography IMPRESSION: Hepatic steatosis. The median shear wave velocity in the liver is 1.09 m/s, corresponding to a median liver stiffness of 3.6 kPa. The IQR/median value is 0.12. This is indicative of a quality data set. Findings are indicative of a normal elastography value with a low likelihood of severe fibrosis or cirrhosis. REFERENCE: Society of Radiologists in Ultrasound Liver Stiffness Thresholds (2020): LIVER STIFFNESS THRESHOLDS: *Shear wave velocity less than 1.3 m/s (Liver Stiffness equal or less than 5 kPa): High probability of being normal. *Shear wave velocity less than 1.7 m/s (Liver Stiffness less than 9 kPa): In the absence of other known clinical signs, rules out compensated advanced chronic liver disease. *Shear wave velocity between 1.7-2.1 m/s (Liver Stiffness 9-13 kPa): Suggestive of compensated advanced chronic liver disease but need further test for confirmation. *Shear wave velocity between 2.1-2.4 m/s (Liver Stiffness 13-17 kPa): Rules in compensated advanced chronic liver disease. *Shear wave velocity greater than 2.4 m/s (Liver Stiffness over 17 kPa): Suggestive of clinically significant portal hypertension. QUALITY OF DATA SET: *IQR/Median value equal or less than 0.30 implies a quality data set. *IQR/Median value over 0.30 implies a poor quality data set. SIGNIFICANT CHANGE FROM PRIOR EXAM: Significant change if liver stiffness measurement is 10% or greater from prior exam. OTHER CONSIDERATIONS: The stage of liver fibrosis may be overestimated in the setting of acute hepatitis, liver inflammation, elevated liver function tests, hepatic vascular congestion, obstructive cholestasis, non-fasting state, and infiltrative diseases such as amyloidosis and lymphoma. In some patients with NAFLD, the liver stiffness thresholds for compensated advanced chronic liver disease may be lower. In causes other than viral hepatitis and NAFLD, liver stiffness thresholds are not well established. Electronically signed by: Bong Spaulding MD 03/30/2025 08:39 AM EDT
--- OUTSIDE RECORDS SUMMARY | 2025-03-30 07:54 | XMS_ITS | Data Portability ---
Author Organization [facility]EP [facility], [address] Address [address] [place] [address] Assessment No assessment recorded. Plan of Treatment Reminders Order Date Submit Date Provider Last Modified By Organization Details Last Modified Time Details Appointments None recorde d. Lab rapid flu (A+B) 024 08/15/20 [email or web address] [facility], [address] [place] [address], [phone], 12:55:21 Referral None recorde d. Procedures None recorde d. Surgeries None recorde d. Imaging None recorde d. Medication Orders None recorde d. Patient TargetsNo targets recorded. Patient Instructions Encounter Date Encounter Id Patient Instructions Last Modified By Organization Details Last Modified Time 08/15/2024 [id number] influenza (flu): care instructions [email or web address] Not available 08/15/2024 13:01:34 Reason for Referral None Reported. Results Created Date Observation Date Name Description Value Unit Range Abnormal Flag Note LastModifiedBy Organization Detail LastModifiedTime 08/15/2008/15/2024 rapid flu (A+B) Unknown Analyte positi ve Not Available [address] [place], [address], 08/15/2024 12:33:57 08/15/20 24 08/15/2024 rapid flu (A+B) Unknown Analyte negati ve Not Available ie [facility] [place] [address], [address], 08/15/2024 12:33:57 08/15/2008/15/2024 rapid flu (A+B) Unknown Analyte yes Not Available [address] [place], [address], 08/15/2024 12:33:57 Result Notes None recorded. Problems Name Problem SNOMED Code Status Onset Date Resolution Date Notes Provider Name and Address Organization Details Recorded Time Thyroiditis 41225591 Active AMANDEEP Perez [facility] 12:32:12 Notes:HOT FLASHES Problem Notes None [...] blood by Pulse oximetry Heart rate Systolic And Diastolic Provider Name and Address Organization Details Last Updated DateTime 162.56 cm 29.2 kg/m2 66560.7 g 98.7 [degF] 95 % 95 % 66 /min 111/72 mm[Hg] Joi Razo [facility] 12:28:02 Social History Question [...] SNOMED-CT Code Diagnosis ICD10 Code Diagnosis Note [id number] [facility] _[address] [address] 06/17/2020 18:43:24 06/17/2020 19:42:15 [id number] Cy Bates DO _[address] [address] 08/15/2024 11:27:14 08/15/2024 13:03:26 Influenza caused by Influenza A virus [id number] J09.X2 past window for Tamiflu Recommend plenty [...] Sexton Member ID Guarantor Name 08/15/2024 1 [place] [employer] [facility] ([facility]) [id number] Chino [id number] [address] 08/15/2024 1 [facility] ([facility]) [id number] Chino [id number] [address] 08/15/2024 [employer] [facility] ([facility]) [id number] [address] Bryan [id number] [facility] No OBEpisode recorded.
--- OUTSIDE RECORDS SUMMARY | 2025-03-30 07:54 | XMS_ITS ---
Author Name [facility] Organization Unknown Encounters Encounter Type Encounter Reason Primary Diagnosis Location Date Ambulatory [facility]. ([place]) 08/15/2024
--- OUTSIDE RECORDS SUMMARY | 2025-03-30 07:54 | XMS_ITS | Clinical Summary ---
Author Organization [facility] Address [address] [place] [address] Phone Care Team Providers Care [employer] Wiring Technician Name Role Phone eRgla Gao Primary Care Provider [phone] Social History Tobacco Use Types Packs/Day Years Used Date Smoking Tobacco: Never Assessed Education Answer Date Recorded Are you interested in more education? Not on octaviano e 12/28/2022 Are you concerned about learning? Not on file 12/28/2022 No 12/28/2022 No 12/28/2022 Digital Access Answer Date Recorded No 01/26/2023 No 01/26/2023 No 01/26/2023 Reliable internet access at home? Not on file 01/26/2023 Device with a working camera? Not on file Comments Unknown Sex and Gender Information Value Date Recorded Sex Assigned at Female 01/02/2024 4:02 PM EDT Legal Sex Female 9:33 PM EDT Gender Identity Female 01/02/2024 4:02 PM EDT Sexual Orientation Straight 01/02/2024 4: 02 PM EDT Plan of Treatment Health Maintenance Due Date Last Done Comments Adult Td,Tdap Booster 1971 LIPID PANEL 1971 DEPRESSION SCREENING 1983 SMOKING Hx and SMOKELESS TOBACCO SCREENING 1984 HEPATITIS C SCREENING 1989 HIV ONE-TIME SCREENING (18-6 5 YEARS) 1989 PAP SMEAR 1992 COLOGUARD 2016 COLONOSCOPY 2016 COLORECTAL CANCER SCREENING 2016 FIT TEST 2016 FOBT 2016 SIGMOIDOSCOPY 2016 VIRTUAL COLONOSCOPY 2016 PNEUMOCOCCAL VACCINES (50+ years) (1 of 1 - PCV) 2021 ZOSTER VACCINES (1 of 2) 2021 MAMMOGRAM 08/03/2022 08/03/2020 COVID-19 VACCINE (3 - 2023-2 5 season) 2024 04/06/2021, 03/16/2021 HEPATITIS A VACCINES Aged Out No long er eligible based on patient's age to complete this topic HIB VACCINES Aged Out No longer eligi ble based on patient's age to complete this topic MENINGOCOCCAL VACCINES (ACWY) Aged Out No longer eligible based on patient's age to complete this topic MENINGOCOCCAL VACCINES (B) Aged Out N o longer eligible based on patient's age to complete this topic Medical Devices Not on file Procedures Procedure Name Priority Date/Time Associated Diagnosis Comments MAMMOGRAPHY Routine 08/03/2020 from Last 3 Months or Most Recently Relevant to Health Maintenance Results * MAMMOGRAPHY FOR RESULT ENTRY ONLY (08/03/2020) Karely Lopez MD HEALTH MAINTENANCE F inal Result from Last 3 Months or Most Recently Relevant to Health Maintenance Insurance [employer] Care Teams [employer] Wiring Technician Relationship Specialty Start Date End Date Regla Gao PA [address] [facility] [address] [place] [address] PCP - General Physician Fruit Or Nut Picker 01/02/24 Additional Source Comments The information contained in this document represents components of the legal health record. It is not the complete legal health record.[facility]
== END 2025-03-30 07:53 | disposition home or self-care (01) ==
LOC: HO.US 07:52
PROVIDERS: PCP Physician Assistant; Visit Provider Physician Assistant
DX: R94.5 Abnormal results of liver function studies (principal); E66.9 Obesity, unspecified; E03.9 Hypothyroidism, unspecified; E55.9 Vitamin D deficiency, unspecified
CPT/HCPCS: 36415; 76700; 76981; 84630

== ENCOUNTER → 2025-03-30 07:53 | Outpatient (BNV) | payer OTHER, SELFPAY | PROVIDERS: PCP Physician Assistant; Visit Provider Radiology Diagnostic Radiology | DX: K76.0 Fatty (change of) liver, not elsewhere classified (principal) | CPT/HCPCS: 76700 ==

== ENCOUNTER 2025-04-21 08:23 | Outpatient (AMB) | payer OTHER, SELFPAY ==
--- NOTE | 2025-04-21 08:30 | MHC.PC.OV ---
Vital Signs 04/21/25 08:32 Height 5 ft 4 in Weight 176 lb 4 oz BMI 30.2 BP 98/72 Blood Pressure Location Rt brachial Position Sitting Respiration 12 Pulse 82 Pulse Source Pulse Oximeter Temp 98.3 F Temp Source Oral Pulse Oximetry (%) 96 Oxygen Delivery Method Room Air Intake Visit Reasons: labs, thyroid, weight check Intake Note: Follow up lab results. Flare Maker Required: No Allergies Penicillins Allergy (Severe, Verified 04/21/25 08:31) Unknown Medication List - Last Reconciled 04/21/25 by Regla Gao PA-C cetirizine (Zyrtec) 10 mg PO DAILY PRN levothyroxine 50 mcg PO DAILY sertraline 50 mg PO DAILY Wegovy (semaglutide (weight loss)) 0.5 mg (0.5 mL) subcut QWEEK NS Tobacco use date assessed: 04/21/25 Dental Screening Dental Screen Date: 04/21/25 Did you have a dental visit in the last 12 months?: Yes Did you have a dental problem in the last 6 months where you did not have access to dental care?: No Was dental information given to patient?: Patient has dentist HPI labs, thyroid, weight check HPI Details Patient is a 54-year-old female who presents today for a physical. Endo: She is on levothyroxine 50 mcg. her TSH was 2. Psych: Feels well-controlled on Zoloft 50 mg. No SI/HI. General: Doing very well with wegovy. no SE at the 0.25 mg weekly Derm: follows annually with [facility] however, recently has had to reschedule and her appointment is 2 years out. Started on Wegovy and tolerating very well. She has lost 10 lb. She says that she is eating very healthy and exercising. GI: LFTs remain slightly elevated. Ultrasound consistent with fatty liver. She does have a family history and hemochromatosis Colonoscopy: UTD, 2023 Pap: follows annually Mammogram: [facility] Bone density: [facility] 2023 [facility] Medical History (Updated 04/21/25 @ 08:51 by Regla Gao PA-C) Obesity, Class I, BMI 30-34.9 Hypothyroidism Hot flashes Allergies Emotional lability Surgical History (Updated 10/21/24 @ 08:16 by Kelly Harry CMA) H/O lithotripsy Social History (Updated 10/21/24 @ 08:16 by Kelly Harry CMA) Housing: House Alcohol intake: current Patient Tobacco Use Status: Never used Tobacco e-Cigarette/Vaping Use: Never Used Second Hand Smoke Exposure: No service: No Current occupational status: employed 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 Current occupational exposures/hazards: No Cognitive needs: No Hearing needs: No Vision needs: No Questionnaire Thrive Questionnaire Date Thrive assessed: 10/21/24 I am a: Patient What is your living situation today?: I have a steady place to live Within the past 12 months, did the food you bought not last and you didn't have the money to get more?: Never true Within the past 12 months, did you worry whether your food would run out before you got money to buy more?: Never true Do you have trouble paying for medicines?: No Do you have trouble getting transportation to medical appointments?: No Do you have trouble paying your heating and electricity bill?: No Do you have trouble taking care of your child, family member or friend?: No Do you have trouble with day-to-day activities such as bathing, preparing meals, shopping, managing finances, etc.?: No Are you currently unemployed and looking for a job?: No Are you interested in more education?: No Please select the resources that you would like help with: None Currently or been in a relationship where the following occur: No concerns reported THRIVE Score: 0 AUDIT C Alcohol Use Questionnaire (AUDIT-C) 1. How often do you have a drink containing alcohol?: Monthly or less 2. How many drinks containing alcohol do you have on a typical day when you are drinking?: 1 or 2 3. How often do you have six or more drinks on one occasion?: Never Total Score: 1 MELLO-7 AMB Questionnaire MELLO-7 Date MELLO - 7 assessed: 10/21/24 Source: Developed by Drs. Bong Molina, Lavinia Crabtree, Jan Dave and colleagues, with an educational yunier from [employer]. Physical exam (Primary Care) Tobacco/Smoking Status: Tobacco use Status Tobacco use date assessed 10/21/24 04/21/25 08:31 Patient Tobacco Use Status Never used Tobacco 04/21/25 08:31 e-Cigarette/Vaping Use Never Used 08/20/25 08:31 Thrive Assessment: Date of Thrive Assessment Date Thrive assessed 10/21/24 04/21/25 08:31 Currently or been in a relationship where the following occur: No concerns reported Results Reviewed Results Reviewed: Laboratory Tests 02/27/24 01/11/25 02/03/25 07:47 08:48 13:38 WBC 5.8 RBC 4.34 Hgb 13.4 Hct 40.0 Plt Count 238 Sodium 142 Potassium 4.2 Chloride 108 Carbon Dioxide 26 Anion Gap 12 BUN 16 Creatinine 0.75 Estimated GFR > 60 Random Glucose 88 Iron 70 TIBC 295 % Saturation 24 Unsat Iron Binding 225 Ferritin 148 Total Bilirubin 0.4 Direct Bilirubin 0.1 GGT 32 AST 31 ALT 44 H Alkaline Phosphatase 82 Total Protein 6.7 Albumin 4.5 Triglycerides 145 Cholesterol 203 H LDL Cholesterol, Calc 115 H HDL Cholesterol 59 25-OH Vitamin D Total 54.2 TSH 2.00 Zinc Thyroglobulin Antibody 208 H Thyroid Peroxidase Ab 706 H Hep Bs Antigen Negative Hepatitis C Ab (EIA) Nonreactive 03/30/25 08:29 WBC RBC Hgb Hct Plt Count Sodium Potassium Chloride Carbon Dioxide Anion Gap BUN Creatinine Estimated GFR Random Glucose Iron TIBC % Saturation Unsat Iron Binding Ferritin Total Bilirubin Direct Bilirubin GGT AST ALT Alkaline Phosphatase Total Protein Albumin Triglycerides Cholesterol LDL Cholesterol, Calc HDL Cholesterol 25-OH Vitamin D Total TSH Zinc 87 Thyroglobulin Antibody Thyroid Peroxidase Ab Hep Bs Antigen Hepatitis C Ab (EIA) US/US abdomen comp w elastography IMPRESSION: Hepatic steatosis. The median shear wave velocity in the liver is 1.09 m/s, corresponding to a median liver stiffness of 3.6 kPa. The IQR/median value is 0.12. This is indicative of a quality data set. Findings are indicative of a normal elastography value with a low likelihood of severe fibrosis or cirrhosis. Coding Level of Care Code Est Pt Level 4 (27599) Complex EM visit Add On G2211 Diagnoses Fatty liver K76.0 Elevated LFTs R79.89 Obesity, Class I, BMI 30-34.9 E66.9 Hypothyroidism, unspecified type E03.9 Hypothyroidism type: unspecified Emotional lability R45.86 Assessment & Plan Assessment & Plan (1) Fatty liver: Code(s): K76.0 - Fatty (change of) liver, not elsewhere classified Category: Medical Plan: We will monitor. Working on lifestyle modifications. (2) Elevated LFTs: Code(s): R79.89 - Other specified abnormal findings of blood chemistry Category: Medical Plan: As above (3) Obesity, Class I, BMI 30-34.9: Code(s): E66.9 - Obesity, unspecified Category: Medical Plan: Congratulated her on the weight loss. Continue current diet. I have increased Wegovy to 1 mg (4) Hypothyroidism: Code(s): E03.9 - Hypothyroidism, unspecified Category: Medical Qualifiers: Hypothyroidism type: unspecified Qualified Code(s): E03.9 - Hypothyroidism, unspecified Plan: Tolerating levothyroxine. Last TSH was WNL (5) Emotional lability: Code(s): R45.86 - Emotional lability Category: Medical Plan: Well-controlled with Zoloft Orders: Orders IRON PROFILE Today E03.9 - Hypothyroidism, unspecified, E66.9 - Obesity, unspecified, K76.0 - Fatty (change of) liver, not elsewhere classified, R45.86 - Emotional lability, R79.89 - Other specified abnormal findings of blood chemistry TSH reflex Free T4 Today E03.9 - Hypothyroidism, unspecified, E66.9 - Obesity, unspecified, K76.0 - Fatty (change of) liver, not elsewhere classified, R45.86 - Emotional lability, R79.89 - Other specified abnormal findings of blood chemistry Basic Metabolic Panel Today E03.9 - Hypothyroidism, unspecified, E66.9 - Obesity, unspecified, K76.0 - Fatty (change of) liver, not elsewhere classified, R45.86 - Emotional lability, R79.89 - Other specified abnormal findings of blood chemistry Hemoglobin A1c Today E03.9 - Hypothyroidism, unspecified, E66.9 - Obesity, unspecified, K76.0 - Fatty (change of) liver, not elsewhere classified, R45.86 - Emotional lability, R73.01 - Impaired fasting glucose, R79.89 - Other specified abnormal findings of blood chemistry Microalbumin, Random (w Creat) Today E03.9 - Hypothyroidism, unspecified, E66.9 - Obesity, unspecified, K76.0 - Fatty (change of) liver, not elsewhere classified, R45.86 - Emotional lability, R79.89 - Other specified abnormal findings of blood chemistry Complete Blood Count Auto Diff Today E03.9 - Hypothyroidism, unspecified, E66.9 - Obesity, unspecified, K76.0 - Fatty (change of) liver, not elsewhere classified, R45.86 - Emotional lability, R79.89 - Other specified abnormal findings of blood chemistry Ferritin Today E03.9 - Hypothyroidism, unspecified, E66.9 - Obesity, unspecified, K76.0 - Fatty (change of) liver, not elsewhere classified, R45.86 - Emotional lability, R79.89 - Other specified abnormal findings of blood chemistry Liver Panel Today E03.9 - Hypothyroidism, unspecified, E66.9 - Obesity, unspecified, K76.0 - Fatty (change of) liver, not elsewhere classified, R45.86 - Emotional lability, R79.89 - Other specified abnormal findings of blood chemistry DNA Analysis Hemochromatosis Today E03.9 - Hypothyroidism, unspecified, E66.9 - Obesity, unspecified, K76.0 - Fatty (change of) liver, not elsewhere classified, R45.86 - Emotional lability, R79.89 - Other specified abnormal findings of blood chemistry UA CC w/rflx Micro + Cult Today E03.9 - Hypothyroidism, unspecified, E66.9 - Obesity, unspecified, K76.0 - Fatty (change of) liver, not elsewhere classified, R45.86 - Emotional lability, R79.89 - Other specified abnormal findings of blood chemistry, Z13.220 - Encounter for screening for lipoid disorders Medications: New semaglutide (weight loss) (Wegovy) 1 mg (0.5 mL) subcut QWEEK 2 mL 2RF Refilled sertraline 50 mg PO DAILY 90 tabs 3RF levothyroxine 50 mcg PO DAILY 90 tabs 1RF Discontinued Wegovy (semaglutide (weight loss)) Discontinued Reason: Duplicate 0.5 mg (0.5 mL) subcut QWEEK 2 mL 3RF NS E66.9 - Obesity, unspecified
[2025-04-21 08:32] VITALS: BP 98/72; PULSE 82; RESP 12; TEMP 36.8; O2SAT 96; BMI 30.2
--- OUTSIDE RECORDS SUMMARY | 2025-04-21 09:02 | XMS_ITS | Clinical Summary ---
Author Organization [facility] Address [address] [place] [address] Phone Care Team Providers Care Surgical Manager Name Role Phone Regla Gao Primary Care Provider [phone] Social History Tobacco Use Types Packs/Day Years [...] Most Recently Relevant to Health Maintenance Insurance [place] [employer] [place] [employer] Care Teams Surgical Manager Relationship Specialty Start Date End Date Regla Gao PA [address] [facility] [address] [place] [address] PCP - General Physician Paste Mixer 01/02/24 Additional Source Comments The information contained in this document represents components of the legal health record. It is not the complete legal health record.[facility]
== END 2025-04-21 09:00 | disposition home or self-care (01) ==
LOC: HO.HMCFM 08:24
PROVIDERS: PCP Physician Assistant; Visit Provider Physician Assistant
DX: E03.9 Hypothyroidism, unspecified (principal); K76.0 Fatty (change of) liver, not elsewhere classified; E66.9 Obesity, unspecified; Z68.30 Body mass index [BMI] 30.0-30.9, adult; R79.89 Other specified abnormal findings of blood chemistry; R45.86 Emotional lability

== ENCOUNTER 2025-06-16 10:23 | Outpatient (AMB) | payer OTHER, SELFPAY ==
[2025-06-16 10:38] VITALS: BP 114/70; PULSE 66; TEMP 36.8; O2SAT 99; BMI 29.0
--- NOTE | 2025-06-16 10:38 | MHC.OFFWIV ---
Intake Vital Signs 06/16/25 10:38 Height 5 ft 4 in Weight 169 lb BMI 29.0 BP 114/70 Blood Pressure Location Lt brachial Position Sitting Pulse 66 Pulse Source Pulse Oximeter Temp 98.2 F Temp Source Oral Pulse Oximetry (%) 99 Oxygen Delivery Method Room Air Intake Visit Reasons: EP Rash all over Intake Note: pt presents with itchy rash to chest, abdomen and back x4 days Patient Tobacco Use Status: Never used Tobacco Allergies Penicillins Allergy (Severe, Verified 06/16/25 10:43) Unknown Medication List - Last Reconciled 06/16/25 by Poli Sy MD cetirizine (Zyrtec) 10 mg PO DAILY PRN levothyroxine 50 mcg PO DAILY semaglutide (weight loss) (Wegovy) 1 mg (0.5 mL) subcut QWEEK sertraline 50 mg PO DAILY Do you need a note to return to daycare/school/sports/work: No HPI EP Rash all over HPI Details History of Present Illness The patient is a 54-year-old female presenting with a rash. Rash: - The patient reports bites all over her body, beginning after her dog was exposed to mites. - The rash is most severe on the upper back and down the sides. - The patient describes it as not particularly itchy, but she is concerned about transmitting it to others. - There has been no prior treatment or intervention for the rash. - The patient obtained information from her dog's gang bore operator and was advised to follow up for treatment. - Indirectly, the patient suspects scabies, as the dog had mites - The patient has been proactive in home management by washing linens in hot water, vacuuming, and steaming floors. Problem List - Scabies Plan - The patient will be treated for scabies with a oral medication as discussed, given concerns about full-body topical application efficacy. - The risks and benefits of oral medication, including potential mild stress on kidneys or liver, were discussed, with a plan for two treatment doses to address possible egg hatching. - Advised to wash all personal and household linens in hot water and treat or avoid furniture that is in close contact with the skin. - Reiteration of contact precautions, including avoiding close skin contact with others, particularly family members, until treatment is complete. Review of Systems - General: No fever no chills - Neurological: No headaches no dizziness - Ear nose throat: No sore throat no hearing difficulty no ear pain Physical Exam General: No acute distress HEENT: No acute findings Neck: Supple Respiratory system: Able to talk in full sentences, no audible wheeze Extremities: No new findings WINDOWS ADMINISTRATOR: Alert awake oriented x3 motor intact Skin: Rash observed on upper back and side, consistent with scabies infection [facility] Medical History Obesity, Class I, BMI 30-34.9 Hypothyroidism Hot flashes Allergies Emotional lability Surgical History H/O lithotripsy Social History Housing: House Alcohol intake: current Patient Tobacco Use Status: Never used Tobacco e-Cigarette/Vaping Use: Never Used Second Hand Smoke Exposure: No service: No Current occupational status: employed 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 - The risks and benefits of oral medication, including potential mild stress on kidneys or liver, were discussed, with a plan for two treatment doses to address possible egg hatching. - Advised to wash all personal and household linens in hot water and treat or avoid furniture that is in close contact with the skin. - Reiteration of contact precautions, including avoiding close skin contact with others, particularly family members, until treatment is complete. Medications: New ivermectin 15,331 mcg PO Q2W 4 tabs 0RF ivermectin 12 mg (2 x 6 mg) PO Q2W 4 tabs 0RF 2 doses Coding Level of Care Code Est Pt Level 3 (09065) Diagnoses Scabies infestation B86
--- OUTSIDE RECORDS SUMMARY | 2025-06-16 12:17 | XMS_ITS | Clinical Summary ---
Author Organization [facility] Address [address] [place] [address] Phone Care Team Providers Care Road Contractor Name Role Phone Regla Gao Primary Care Provider [phone]- [phone] Social History Tobacco Use Types Packs/Day Years [...] (1 of 2) 2021 MAMMOGRAM 08/03/2022 08/03/2020 INFLUENZA VACCINE (#1) 2025 COVID-19 VACCINE (3 - 2024-2 6 season) 2025 04/06/2021, 03/16/2021 RSV VACCINE (1 - 1-dose 75+ series) 2046 HEPATITIS A VACCINES Aged Out No long [...] Procedure Name Priority Date/Time Associated Diagnosis Comments HM MAMMOGRAPHY Routine 08/03/2020 from Last 3 Months or Most Recently Relevant to Health Maintenance Results * HM MAMMOGRAPHY FOR RESULT ENTRY ONLY (08/03/2020) Karely Lopez MD HEALTH MAINTENANCE F inal Result from Last 3 Months or Most Recently Relevant to Health Maintenance Insurance [employer] B[employer] [facility] [employer] Care Teams Road Contractor Relationship Specialty Start Date End Date Regla Gao PA [address] [place] [id number] PCP - General Physician Medicinal Plant Picker 01/02/24 Additional Source Comments The information contained in this document represents components of the legal health record. It is not the complete legal health record.[facility]
== END 2025-06-16 11:26 | disposition home or self-care (01) ==
PROVIDERS: PCP Physician Assistant; Visit Provider Internal Medicine
DX: B86 Scabies (principal)

== ENCOUNTER 2025-07-19 08:40 | Outpatient (REF) | payer OTHER, SELFPAY ==
[2025-07-19 11:21] LABS: MANUAL DIFF FLAG NO
[2025-07-19 11:42] LABS: Appearance Urine Clear; Glucose Urine UA Negative (Negative); PH 6.0 (5.0-9.0); Specific Gravity - Urine 1.020 (1.005-1.025)
[2025-07-19 12:10] LABS: Hematocrit 40.9 % (37.0-47.0); Hemoglobin 13.4 g/dl (12.0-16.0); Imm Gran Abs Auto 0.01 X10*3/uL (0.00-0.03); Imm Gran Pct Auto 0.2 % (0.0-0.4); Lymphocytes Absolute Auto 1.2 X10*3/uL (1.2-4.9); Mean Corpuscular HGB Conc 32.8 g/dl (31.0-35.0); Mean Corpuscular Hemoglobin 30.5 pg (27.0-33.0); Mean Corpuscular Volume 93.2 fL (80.0-98.0); NRBC Abs Auto 0.000 X10*3/uL (0.0-0.012); NRBC Pct Auto 0.0 /100WBC (0.0-0.2); Platelet Count 225 X10*3/uL (160-400); Red Blood Count 4.39 X10*6/uL (4.20-5.50); White Blood Count 4.3 X10*3/uL (4.8-10.8)
[2025-07-19 12:24] LABS: Microalbum/Creatinine Ratio Ur 3.8 ug/mg cr (<30)
[2025-07-19 12:40] LABS: Alanine Aminotransferase 36 U/L (0-31); Albumin Level 4.6 g/dL (3.5-5.0); Alkaline Phosphatase 90 U/L (39-117); Anion Gap 11 (12-20); Aspartate Amino Transferase 30 U/L (5-31); Blood Urea Nitrogen 13 mg/dL (9-16); Calcium 9.4 mg/dL (8.4-10.2); Carbon Dioxide 25 mmol/L (22-29); Chloride 111 mmol/L (96-108); Estimated Glomerular Filt Rate > 60; Iron 97 mcg/dL (30-160); Percent Iron Saturation 34 % (15-50); Potassium 4.3 mmol/L (3.3-5.1); Sodium 143 mmol/L (135-145); Total Iron Binding Capacity 287 mcg/dL (228-428); Total Protein 6.7 g/dL (6.5-8.0); Unsaturated Iron Binding 190 ug/dL
[2025-07-19 13:00] LABS: Ferritin 242 ng/mL (10-250)
== END 2025-07-19 08:41 | disposition home or self-care (01) ==
LOC: HO.WFDLDS 08:40
PROVIDERS: Visit Provider Physician Assistant
DX: R73.01 Impaired fasting glucose (principal); E03.9 Hypothyroidism, unspecified; E66.9 Obesity, unspecified; K76.0 Fatty (change of) liver, not elsewhere classified; R79.89 Other specified abnormal findings of blood chemistry; R45.86 Emotional lability; Z13.220 Encounter for screening for lipoid disorders
CPT/HCPCS: 36415; 80048; 80076; 81003; 81256; 82043; 82570; 82728; 83036; 83540; 84443; 85025

== ENCOUNTER 2025-07-22 08:32 | Outpatient (AMB) | payer OTHER, SELFPAY ==
--- NOTE | 2025-07-22 08:35 | MHC.PC.OV ---
Vital Signs 07/22/25 08:36 Height 5 ft 4 in Weight 168 lb 8 oz BMI 28.9 BP 104/74 Blood Pressure Location Rt brachial Position Sitting Respiration 12 Pulse 85 Pulse Source Pulse Oximeter Temp 98 F Temp Source Oral Pulse Oximetry (%) 95 Oxygen Delivery Method Room Air Intake Visit Reasons: med check Intake Note: Medication follow up Alcohol And Drug Counselor Required: No Allergies Penicillins Allergy (Severe, Verified 06/16/25 10:43) Unknown Medication List - Last Reconciled 07/22/25 by Regla Gao PA-C cetirizine (Zyrtec) 10 mg PO DAILY PRN levothyroxine 50 mcg PO DAILY semaglutide (weight loss) (Wegovy) 1 mg (0.5 mL) subcut QWEEK sertraline 50 mg PO DAILY Tobacco use date assessed: 07/22/25 Dental Screening Dental Screen Date: 04/21/25 HPI med check HPI Details Patient is a 54-year-old female who presents today for a follow up. Endo: She is on levothyroxine 50 mcg. her TSH was 2. Psych: Feels well-controlled on Zoloft 50 mg. No SI/HI. General: Doing very well with wegovy. no SE at the 1 mg weekly. Derm: follows annually with [facility] Started on Wegovy and tolerating very well. She has lost 32 lb. She says that she is eating very healthy and exercising. GI: LFTs remain slightly elevated. Ultrasound consistent with fatty liver. She does have a family history and hemochromatosis. Lab pending Colonoscopy: [facility]2023 Pap: follows annually, overdue Mammogram: [facility] Bone density: [facility] 2023 family hx mother had breast cancer at mid 50s [facility] Medical History Obesity, Class I, BMI 30-34.9 Hypothyroidism Hot flashes Allergies Emotional lability Surgical History H/O lithotripsy Social History Housing: House Alcohol intake: current Patient Tobacco Use Status: Never used Tobacco e-Cigarette/Vaping Use: Never Used Second Hand Smoke Exposure: No service: No Current occupational status: employed 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 Current occupational exposures/hazards: No Cognitive needs: No Hearing needs: No Vision needs: No Questionnaire Thrive Questionnaire Date Thrive assessed: 10/21/24 I am a: Patient What is your living situation today?: I have a steady place to live Within the past 12 months, did the food you bought not last and you didn't have the money to get more?: Never true Within the past 12 months, did you worry whether your food would run out before you got money to buy more?: Never true Do you have trouble paying for medicines?: No Do you have trouble getting transportation to medical appointments?: No Do you have trouble paying your heating and electricity bill?: No Do you have trouble taking care of your child, family member or friend?: No Do you have trouble with day-to-day activities such as bathing, preparing meals, shopping, managing finances, etc.?: No Are you currently unemployed and looking for a job?: No Are you interested in more education?: No Please select the resources that you would like help with: None Currently or been in a relationship where the following occur: No concerns reported THRIVE Score: 0 AUDIT C Alcohol Use Questionnaire (AUDIT-C) 1. How often do you have a drink containing alcohol?: Never 3. How often do you have six or more drinks on one occasion?: Never Total Score: 0 MELLO-7 AMB Questionnaire MELLO-7 Date MELLO - 7 assessed: 10/21/24 Source: Developed by Drs. Bong Molina, Lavinia Crabtree, Jan Dave and colleagues, with an educational yunier from [employer]. Physical exam (Primary Care) Vital Signs: Last Vital Signs Temp 98 F 07/22/25 08:36 Pulse 85 07/22/25 08:36 Resp 12 07/22/25 08:36 BP 104/74 07/22/25 08:36 Pulse Ox 95 07/22/25 08:36 Oxygen Delivery Method Room Air 07/22/25 08:36 BMI result Body Mass Index 28.9 Tobacco/Smoking Status: Tobacco use Status Tobacco use date assessed 07/22/25 07/22/25 08:39 Patient Tobacco Use Status Never used Tobacco 07/22/25 08:39 e-Cigarette/Vaping Use Never Used 07/22/25 08:39 Thrive Assessment: Date of Thrive Assessment Date Thrive assessed 10/21/24 07/22/25 08:39 Currently or been in a relationship where the following occur: No concerns reported Const Orientation/consciousness: patient oriented x3 HENMT Ears: hearing grossly normal bilaterally Neck Thyroid: Thyroid normal Lymphatic: no lymphadenopathy noted Resp Auscultation: clear to auscultation bilaterally Cardio Rate: regular rate Rhythm: regular rhythm Heart sounds: S1 normal heart sound present and S2 normal heart sound present GI Inspection: Yes normal to inspection Palpation (GI): Soft to palpation and Other GI palpation findings present (nontender, no cva tenderness) Auscultation: normoactive bowel sounds Rectal Exam - Female: deferred Skin General skin exam: no rashes or lesions noted Neuro General: patient oriented x3, gait normal and no focal motor deficits Results Reviewed Results Reviewed: Laboratory Tests 07/19/25 08:42 WBC 4.3 L RBC 4.39 Hgb 13.4 Hct 40.9 Plt Count 225 Sodium 143 Potassium 4.3 Chloride 111 H Carbon Dioxide 25 Anion Gap 11 L BUN 13 Creatinine 0.76 Estimated GFR > 60 Random Glucose 87 Hemoglobin A1c % 5.3 AST 30 ALT 36 H Alkaline Phosphatase 90 Total Protein 6.7 Albumin 4.6 TSH 1.71 Coding Level of Care Code Est Pt Level 4 (43286) Complex EM visit Add On G2211 Diagnoses Hypothyroidism, unspecified type E03.9 Hypothyroidism type: unspecified Obesity, Class I, BMI 30-34.9 E66.9 Elevated LFTs R79.89 Emotional lability R45.86 Assessment & Plan Assessment & Plan (1) Hypothyroidism: Code(s): E03.9 - Hypothyroidism, unspecified Category: Medical Qualifiers: Hypothyroidism type: unspecified Qualified Code(s): E03.9 - Hypothyroidism, unspecified Plan: Continue levothyroxine (2) Obesity, Class I, BMI 30-34.9: Code(s): E66.9 - Obesity, unspecified Category: Medical Plan: Increase Wegovy (3) Elevated LFTs: Code(s): R79.89 - Other specified abnormal findings of blood chemistry Category: Medical Plan: Improved Hemochromatosis lab pending (4) Emotional lability: Code(s): R45.86 - Emotional lability Category: Medical Plan: Well-controlled with sertraline Orders: Referrals TECHNOLOGY EDUCATION INSTRUCTOR Referral [id number] - Encounter for gynecological examination (general) (routine) without abnormal findings Medications: New semaglutide (weight loss) (Wegovy) 1.7 mg (0.75 mL) subcut QWEEK 3 mL 3RF Discontinued semaglutide (weight loss) (Wegovy) Discontinued Reason: Doctor's Order 1 mg (0.5 mL) subcut QWEEK 2 mL 2RF
[2025-07-22 08:36] VITALS: BP 104/74; PULSE 85; RESP 12; TEMP 36.6; O2SAT 95; BMI 28.9
--- OUTSIDE RECORDS SUMMARY | 2025-07-22 09:40 | XMS_ITS | Data Portability ---
Author Organization [facility], [address] Address [address] [place] [address] Assessment No assessment recorded. Plan of Treatment Reminders Order Date Submit Date Provider Last Modified By Organization Details Last Modified Time Details Appointments None recorde d. Lab rapid flu (A+B) 024 08/15/20 [email or web address], [address] [place] [address], [phone], 12:55:21 Referral None recorde d. Procedures None recorde d. Surgeries None recorde d. Imaging None recorde d. Medication Orders None recorde d. Patient TargetsNo targets recorded. Patient Instructions Encounter Date Encounter Id Patient Instructions Last Modified By Organization Details Last Modified Time 08/15/2024 [id number] influenza (flu): care instructions [email or web address] Not available 08/15/2024 13:01:34 Reason for Referral None Reported. Results Created Date Observation Date Name Description Value Unit Range Abnormal Flag Note LastModifiedBy Organization Detail LastModifiedTime 08/15/2008/15/2024 rapid flu (A+B) Unknown Analyte positi ve Not Available [address] [place], [phone], 08/15/2024 12:33:57 08/15/20 24 08/15/2024 rapid flu (A+B) Unknown Analyte negati ve Not Available [facility] [address] [place] [address], [phone], 08/15/2024 12:33:57 08/15/2008/15/2024 rapid flu (A+B) Unknown Analyte yes Not Available [id number] [place], [phone], 08/15/2024 12:33:57 Result Notes None recorded. Problems Name Problem SNOMED Code Status Onset Date Resolution Date Notes Provider Name and Address Organization Details Recorded Time Thyroiditis [id number] Active AMANDEEP Perez [facility] 4 12:32:12 Notes:HOT FLASHES Problem Notes None recorded. [...] (BMI) Body weight Body temperature Oxygen saturation Heart rate Systolic And Diastolic Provider Name and Address Organization Details Last Updated DateTime 4 162.56 cm 29.2 kg/m2 76713.7 g 98.7 [degF] 95 % 66 /min 111/72 mm[Hg] Joi BERNSTEIN - [facility] 4 12:28:02 Social History Question Answer Notes LastModified by Organizat ion Details LastModified Time Tobacco Smoking Status Never Smoker AMANDEEP Perez [facility] 08/15/2024 12:33:10 Have You Had A [...] Diagnosis SNOMED-CT Code Diagnosis ICD10 Code Diagnosis IMO Codes Diagnosis Note [id number] _[facility] _[address] [phone] 06/17/2020 18:43:24 06/17/2020 19:42:15 [id number] Cy Bates DO _[address] [address] 08/15/2024 11:27:14 08/15/2024 13:03:26 Influenza caused by Influenza A virus [id number] J09.X2 past window for Tamiflu Recommend plenty [...] Guarantor Name 08/15/2024 1 [employer] [facility]) [id number] [address] Bryan [id number] [address] Cassy Bryan 08/15/2024 1 [facility] (O) [id number] Chino Bryan [id number] [address] Cassy Bryan 08/15/2024 [employer] [facility] ([facility] [id number] Chino Bryan [id number] 113 Cassy Bryan Notes Date Note Type Note Provider Name and Address Organization Details Recorded Time 08/15/2024 text/html CoughReported by [email or web address] yo female c/o 1 week cough w/phlegm, [place], body ache, congestion home covid test negative no h/o asthmanon smoker + subjective feverNo chillsNo nauseaNo vomitingNo wheezeNo difficulty breathing or respiratory distressNo CPNo sinus painNo ear painNo sore throatNo Abdominal painNo diarrheaNo fatigueNo rashNo dizzinessNo recent travelNo known sick contacts ROS as noted in the HPI Cy Bates, DO [address] [place], [address], [place] - [facility] 08/15/2024 13:02:15 OBGyn Episode No OBEpisode recorded.
== END 2025-07-22 09:02 | disposition home or self-care (01) ==
LOC: HO.HMCFM 08:32
PROVIDERS: PCP Physician Assistant; Visit Provider Physician Assistant
DX: E03.9 Hypothyroidism, unspecified (principal); E66.9 Obesity, unspecified; R79.89 Other specified abnormal findings of blood chemistry; R45.86 Emotional lability; Z68.28 Body mass index [BMI] 28.0-28.9, adult